=== PATIENT | female | born 1985 | race Caucasian/White ===

== ENCOUNTER 2017-01-05 00:53 | Emergency (ER) | payer OTHER ==
[~2017-01-05] VITALS: Ht 157.5 cm; Wt 49.9 kg
--- NOTE | 2017-01-05 00:59 | NUR ---
PT IS AMBULATORY WITH STEADY GAIT. SPEAKING IN FULL SENTENCES. NAD NOTED. VSS. PT IS AT BEDSIDE, PLAYING WITH CELL PHONE. C/O BILATERAL EAR PAIN, WAS SEEN AT [facility] YESTERDAY. WAS GIVEN "EAR DROPS". MD MARTINEZ AT BEDSIDE PERFORMING MSE.
--- NOTE | 2017-01-05 01:11 | NUR ---
Patient discharged to home in stable conditon. Written and verbal after care instructions given. Patient verbalizes understanding of instructions. No further questions or concerns noted prior on leaving the ED.
[2017-01-05 01:12] VITALS: BP 105/83
[2017-01-05] MEDS ORDERED: MECLIZINE HCL 25 MG TABLET PO ONE (01:15)
[2017-01-05] MEDS ORDERED: MECLIZINE HCL 25 MG TABLET ONE (01:16)
== END 2017-01-05 01:13 | disposition home or self-care (01) ==
LOC: ER 01:02
DX: H92.01 Otalgia, right ear (principal); R09.82 Postnasal drip
CPT/HCPCS: A4663; J8597

== ENCOUNTER 2019-03-13 12:28 | Emergency (ER) | payer OTHER ==
[~2019-03-13] VITALS: Ht 157.5 cm; Wt 52.2 kg
--- NOTE | 2019-03-13 12:37 | NUR ---
at bedside to examine patient.
--- NOTE | 2019-03-13 12:51 | NUR ---
Patient given discharge instructions and prescription as ordered. Patient has been discharged to home/self care.
== END 2019-03-13 12:51 | disposition home or self-care (01) ==
LOC: ER 12:28
DX: J02.9 Acute pharyngitis, unspecified (principal)
CPT/HCPCS: A4663